=== PATIENT | female | born 1995 | race Caucasian/White ===

== ENCOUNTER 2021-08-26 02:49 | Outpatient (CLI) | payer OTHER, SELFPAY ==
[2021-08-26 15:45] LABS: Kit/Specimen SENT
[2021-08-26 16:03] LABS: Abs Immature Grans 0.05 10^3/uL (0.0-0.06); Absolute Basophil Count 0.07 10^3/uL (0.0-0.2); Absolute Eosinophil Count 0.31 10^3/uL (0.0-0.7); Absolute Lymphocyte Count 2.56 10^3/uL (1.2-3.4); Absolute Monocyte Count 0.75 10^3/uL (0.1-0.8); Basophils % 0.5; Eosinophils % 2.2; HGB 13.8 g/dL (11.2-15.7); Immature Grans % 0.4; Lymphocytes % 18.1; MCH 31.4 pg (27.0-33.0); MCHC 34.5 % (32.0-36.0); MCV 91.1 fL (80-95); MPV 9.7 fL (8.0-11.0); Monocytes % 5.3; Neutrophils % 73.5; Nucleated RBC 0 %; Platelet Count 244 10^3/uL (130-400); RBC 4.39 10^6/uL (3.93-5.22); RDW 12.6 % (11.7-14.6); RDW-SD 41.4 fL; WBC 14.15 10^3/uL (4.4-10.8)
[2021-08-26 17:19] LABS: FREE T4 0.89 ng/dL (0.76-1.46)
[2021-08-28 12:38] LABS: HIV-1/2 Ag & Ab Screen Negative (Negative)
[2021-08-30 08:55] LABS: Hepatitis B Surface Ag Negative (Negative)
[2021-08-30 09:42] LABS: Hepatitis C Ab w Rflx HCV PCR Negative (Negative)
[2021-08-30 10:47] LABS: Rubella IgG Ab (UVM) Positive (See Note); Varicella IgG Antibody Negative (See Note)
[2021-08-31 00:12] LABS: Syphilis IgG w/Reflex Nonreactive (Nonreactive)
== END 2021-08-26 02:50 | disposition home or self-care (01) ==
LOC: LBO 02:49
PROVIDERS: Visit Provider Advanced Practice Midwife
DX: Z34.91 Encounter for supervision of normal pregnancy, unspecified, first trimester
CPT/HCPCS: 36415; 86787; 86803; 86850; 86900; 86901; 87340; 87389; 84439; 84443; 85025; 86762; 86780

== ENCOUNTER 2021-08-26 18:16 | Outpatient (REF) | payer OTHER, SELFPAY ==
[2021-08-26 20:43] LABS: *AMPHETAMINES SCREEN URINE Negative (Negative); *BARBITURATES SCREEN URINE Negative (Negative); *BENZODIAZEPINES SCREEN URINE Negative (Negative); Cannabinoids THC Negative (Negative); Cocaine Screen,Urine Negative (Negative); METHADONE URINE SCREEN Negative (Negative); OPIATES URINE SCREEN Negative (Negative)
[2021-08-26 20:49] LABS: Tricyclic Antidepressants Negative (Negative)
[2021-08-30 14:51] LABS: Chlamydia Result Negative (Negative); GC Result Negative (Negative)
[2021-09-02 11:08] LABS: Buprenorphine Negative ng/mL (Cutoff: 5.0); Norbuprenorphine Negative ng/mL (Cutoff: 2.5)
== END 2021-08-26 18:17 | disposition home or self-care (01) ==
LOC: LBN 18:16
PROVIDERS: Visit Provider Advanced Practice Midwife
DX: Z34.91 Encounter for supervision of normal pregnancy, unspecified, first trimester
CPT/HCPCS: 80307; 87491; 87591; 87086

== ENCOUNTER 2021-09-14 03:23 | Outpatient (CLI) | payer OTHER, SELFPAY ==
[2021-09-14 11:23] LABS: Kit/Specimen SENT
== END 2021-09-14 03:24 | disposition home or self-care (01) ==
LOC: LBO 03:24
PROVIDERS: Visit Provider Advanced Practice Midwife
DX: Z34.02 Encounter for supervision of normal first pregnancy, second trimester (principal)
CPT/HCPCS: 36415

== ENCOUNTER 2021-09-23 02:25 | Outpatient (CLI) | payer OTHER, SELFPAY ==
[2021-09-23 16:34] LABS: TSH (W/Ref FT4) 7.93 uIU/mL (0.36-3.74)
[2021-09-23 17:17] LABS: FREE T4 0.86 ng/dL (0.76-1.46)
== END 2021-09-23 02:26 | disposition home or self-care (01) ==
LOC: LBO 02:25
PROVIDERS: Advanced Practice Midwife; Visit Provider Advanced Practice Midwife
DX: E03.9 Hypothyroidism, unspecified (principal); Z34.91 Encounter for supervision of normal pregnancy, unspecified, first trimester
CPT/HCPCS: 36415; 84439; 84443

== ENCOUNTER 2021-10-22 02:29 | Outpatient (CLI) | payer OTHER, SELFPAY ==
[2021-10-22 15:57] LABS: FREE T4 0.98 ng/dL (0.76-1.46)
== END 2021-10-22 02:30 | disposition home or self-care (01) ==
LOC: LBO 02:29
PROVIDERS: Visit Provider Advanced Practice Midwife
DX: E03.9 Hypothyroidism, unspecified (principal)
CPT/HCPCS: 36415; 84439; 84443

== ENCOUNTER 2021-11-26 18:51 | Outpatient (CLI) | payer OTHER, SELFPAY ==
[2021-11-26 14:41] LABS: CREATININE 0.6 mg/dL (0.55-1.02)
== END 2021-11-26 18:52 | disposition home or self-care (01) ==
LOC: LBO 18:52
PROVIDERS: Visit Provider Advanced Practice Midwife
DX: O98.512 Other viral diseases complicating pregnancy, second trimester (principal); U07.1 COVID-19; Z3A.23 23 weeks gestation of pregnancy
CPT/HCPCS: 36415; 82565

== ENCOUNTER 2021-12-17 01:43 | Outpatient (CLI) | payer OTHER, SELFPAY ==
[2021-12-17 09:44] LABS: HCT 35.4 % (36.0-46.0); HGB 12.2 g/dL (11.2-15.7); MCH 32.4 pg (27.0-33.0); MCHC 34.5 % (32.0-36.0); MCV 94 fL (80-95); MPV 9.5 fL (8.0-11.0); Platelet Count 204 10^3/uL (130-400); RBC 3.77 10^6/uL (3.93-5.22); RDW 12.3 % (11.7-14.6); RDW-SD 42.4 fL; WBC 14.81 10^3/uL (4.4-10.8)
[2021-12-17 09:52] LABS: Glucose,1 Hr (Glucola) 132 mg/dL (80-140)
== END 2021-12-17 01:44 | disposition home or self-care (01) ==
LOC: LBO 01:43
PROVIDERS: Visit Provider Advanced Practice Midwife
DX: Z34.92 Encounter for supervision of normal pregnancy, unspecified, second trimester (principal); Z3A.26 26 weeks gestation of pregnancy
CPT/HCPCS: 36415; 82950; 85027

== ENCOUNTER 2021-12-28 08:06 | Outpatient (CLI) | payer OTHER, SELFPAY | END 2021-12-28 08:07 | disposition home or self-care (01) | LOC: LBO 08:09 | PROVIDERS: Visit Provider Advanced Practice Midwife ==

== ENCOUNTER 2022-01-26 02:38 | Outpatient (CLI) | payer OTHER, SELFPAY ==
[2022-01-26 08:43] LABS: FREE T4 1.07 ng/dL (0.76-1.46); TSH 8.34 uIU/mL (0.36-3.74)
== END 2022-01-26 02:39 | disposition home or self-care (01) ==
LOC: LBO 02:38
PROVIDERS: Visit Provider Advanced Practice Midwife
DX: E03.9 Hypothyroidism, unspecified (principal)
CPT/HCPCS: 36415; 84439; 84443

== ENCOUNTER → 2022-02-02 00:12 | Outpatient (CLI) | payer OTHER, SELFPAY ==
--- NOTE | 2022-02-02 08:15 | DI.US_ITS ---
Exam(s) US OB SINDY WEIGHT EXAM: US OB SINDY WEIGHT CLINICAL HISTORY: check placental position, growth,o44.41,F/UPLACENTA. TECHNIQUE: Transabdominal obstetrical ultrasound was performed. COMPARISON: US US OB F/U FACIAL/LVOT/RVOT from 12/21/2021 FINDINGS: There is a single viable intrauterine gestation with cardiac activity identified-140 bpm The fetus is presently in cephalic position . Amniotic fluid: There is a normal amount of amniotic fluid with an SINDY of 15.0cm. Placental location: The placenta is posterior grade 2,with a distance of only 2.6 cm from the tip of the placenta to the internal cervical os. Dating parameters place this at approximately 33 weeks and 1 day gestational age, implying ELISHA of March 22, 2022. BPD measures 32 weeks and 3 days HC measures 34 weeks and 3 days AC measures 31 weeks and 6 days FL measures 33 weeks and 5 days Estimated weight is 2037 gm-4 pounds, 8 ounces. Fetus is at the 17th percentile on the Hadlock scale. IMPRESSION:: Viable 3rd trimester gestation, as described above. There is a distance of 2.6 cm between the distal tip of the posterior placenta and the internal cervi gabrielel os, as verified on trans vaginal study. DATA REPOSITORY:
== END ==
PROVIDERS: Visit Provider Advanced Practice Midwife
DX: O44.43 Low lying placenta NOS or without hemorrhage, third trimester (principal); O98.513 Other viral diseases complicating pregnancy, third trimester; U07.1 COVID-19; Z3A.33 33 weeks gestation of pregnancy
CPT/HCPCS: 76816

== ENCOUNTER 2022-02-14 03:49 | Outpatient (CLI) | payer OTHER, SELFPAY ==
[2022-02-14 10:22] LABS: TSH (W/Ref FT4) 0.99 uIU/mL (0.36-3.74)
== END 2022-02-14 03:50 | disposition home or self-care (01) ==
LOC: LBO 03:49
PROVIDERS: Visit Provider Advanced Practice Midwife
DX: O99.283 Endocrine, nutritional and metabolic diseases complicating pregnancy, third trimester (principal); E03.9 Hypothyroidism, unspecified; Z3A.35 35 weeks gestation of pregnancy
CPT/HCPCS: 36415; 84443

== ENCOUNTER 2022-02-23 20:14 | Outpatient (REF) | payer OTHER, SELFPAY ==
[2022-02-23 13:54] LABS: *AMPHETAMINES SCREEN URINE Negative (Negative); *BARBITURATES SCREEN URINE Negative (Negative); *BENZODIAZEPINES SCREEN URINE Negative (Negative); Cannabinoids THC Negative (Negative); Cocaine Screen,Urine Negative (Negative); METHADONE URINE SCREEN Negative (Negative); OPIATES URINE SCREEN Negative (Negative)
[2022-02-23 13:55] LABS: Tricyclic Antidepressants Negative (Negative)
[2022-03-03 15:34] LABS: Buprenorphine Negative ng/mL (Cutoff: 5.0); Norbuprenorphine Negative ng/mL (Cutoff: 2.5)
== END 2022-02-23 20:15 | disposition home or self-care (01) ==
LOC: LBN 20:14
PROVIDERS: Visit Provider Advanced Practice Midwife
DX: Z34.93 Encounter for supervision of normal pregnancy, unspecified, third trimester (principal); Z36.85 Encounter for antenatal screening for Streptococcus B; Z3A.36 36 weeks gestation of pregnancy
CPT/HCPCS: 80307; 87081

== ENCOUNTER 2022-03-02 16:54 | Outpatient (REF) | payer OTHER, SELFPAY ==
[2022-03-11 11:42] LABS: Buprenorphine Negative ng/mL (Cutoff: 5.0)
== END 2022-03-02 16:55 | disposition home or self-care (01) ==
LOC: LBN 16:54
PROVIDERS: Advanced Practice Midwife; Visit Provider Advanced Practice Midwife
DX: O26.893 Other specified pregnancy related conditions, third trimester (principal); R39.89 Other symptoms and signs involving the genitourinary system; Z3A.39 39 weeks gestation of pregnancy
CPT/HCPCS: 80307; 87086

== ENCOUNTER 2022-03-21 00:21 | Inpatient (IN) | payer OTHER, SELFPAY ==
[2022-03-21] VITALS (19 sets, daily range): BP systolic 108–136; BP diastolic 64–90; PULSE 69–108; RESP 12–18; TEMP 36.5–37.1; O2SAT 98–100
--- NOTE | 2022-03-21 00:27 | HPE_ITS ---
Date of service: 03/21/22 Time of Service: 00:27 Assessment and Plan Assessment and plan (1) Normal labor: Status: Acute Assessment and plan: 1. Will admit, obtain COVID test, CBC, CMP, TSH with reflex and Type and screen 2. IV access for GBS prophylaxis 3. Will support labor, use of tub for water therapy and frequent position changes 4. Expect NVD. KH (2) Hypothyroid: Status: Chronic Assessment and plan: 1. TSH with reflex ordered. 2. Continue Levothyroxine 200 mcg as ordered daily. KH (3) Maternal varicella, non-immune: Status: Acute Assessment and plan: 1. Patient is aware and we will offer VZV vaccine prior to discharge. KH (4) Rh negative status during : Status: Acute Assessment and plan: 1. FOB provided evidence of also being Rh negative and patient has declined Rhogam, will likely also decline PP. KH (5) Genital herpes: Status: Acute Assessment and plan: 1. No lesions noted on exam. 2. Has been taking prophylaxis but admits last dose was 2 days ago. 3. No outbreaks during reported. KH (6) Group B Streptococcus carrier, +RV culture, currently : Status: Acute Assessment and plan: 1. IV access for PCN prophylaxis as ordered. KH OB-HPI Labor/Delivery History of Present Illness Reason for Visit: labor at term, GBS postivie Chief Complaint: Uterine Contractions. ELISHA Calculator Estimated Delivery Date Method Current WG Current Estimate 03/19/22 LMP (Certain) 40w 2d Other Estimates 03/19/22 Ultrasound #1 40w 2d History of Present Expected Delivery Route/Plan - CNM Goes by Sanjeev LOPEZ/jaydon Fam (his first child) BG Varicella Non-Immune, offer vaccine GBS positive - prophylaxis in labor Specific Issues/Plan 1. Depression, stopped sertraline with , will consider restarting after 36 wks or . 2. Hypothyroidism since age 18-.on levothyroxine 112 mcg daily 2a. TSH 22.9, T4 0.89, per Dr. Rodriguez: increase Rx to 150 mcg, recheck TSH 09/23/21 2b. TSH 09/23 7.93 T4 0.86, per Dr. Mora continue present Levo dose and repeat 4 weeks 2c. TSH October- 6.70, T4 - 0.98 2d TSH 01/26- 8.34 patient reports not taking daily, will try to take daily and repeat in 3 wks, if remains elevated will increase to 225mcg per Dr. Mora consult. 2e. On 02/14 TSH=0.99 3. History of genital HSV - prophylaxis at 36 weeks 4. Alesia and her partner are unvaccinated for covid 5. Rh neg; will ask partner to check his blood type. -Partner is Rh neg confirmed by [place]. 6. Desires cfDNA screen, declines CF/SMA and AFP screen 6a. 1st sample yielded no results, redrawn on 09/14 6b. results show atypical results, to [facility] on 10/27 & telegenetics on 10/11 6c. Patient declined amnio after consult, will have target US on 10/21 and reassess 7. Level II targeted US: complete previa, numerous placenta lakes small and large, episodes of brief bradycardia noted on US: consult with Dr. Gimenez, no follow up required for placental lakes, repeat US for previa at 28 wks: Placenta 1.9cm from tip at 27w3d repeat 33 wks (see below) 7a. echo scheduled at [facility], done 11/19/21, nml findings 7b. placenta is 2.6 cms from cervical os at 33 wks, EFW in 17th percentile, SINDY 15 7. Varicella non immune, pt counseled, offer vaccine 8. COVID + 11/26 at 23w6d, Paxlovid Rx'ed. F/up 33 wk scan on 02/02: EFW 2037 gms in 17th percentile, SINDY=15 9. Dx of Vitiligo while in high school, never used meds, Seen on vulva, hands, face, lower abd low back, feet. Assessment: History Reviewed & Current Narrative: Alesia presented 03/20/22 at approximately 2202 for NST due to regular contractions with increasing intensity and frequency at 8 pm. Denies ROM as had increased mucous with bloody discharge. Baby has been active. NST was reactive. VE was 2/80/-2 but after ambulation VE changed to 4/90/-1 and decision to admit was made due to cervical change and GBS positive status. Informed Consent Informed Consent: Risk,Benefits,Alternatives Discussed and Other (IV access and GBS prophylaxis) Review of Systems All systems reviewed & are unremarkable except as noted in HPI and below PFSH All Active Problems (Updated 03/21/22 @ 00:34 by Bre Roland CNM) Group B Streptococcus carrier, +RV culture, currently (Acute) Normal labor (Acute) Vitiligo (Acute) chromosome abnormality, antepartum (Acute) Rh negative status during (Acute) Maternal varicella, non-immune (Acute) Hypothyroid (Chronic) Depression (Chronic) zoloft in the past Genital herpes (Acute) (Acute) Medical History (Updated 03/21/22 @ 00:34 by Bre Roland CNM) Amenorrhea Complete placenta previa nos or without hemorrhage, second trimester COVID-19 affecting in second trimester + 11/26/21 Low lying placenta nos or without hemorrhage, third trimester Low-lying placenta in second trimester Placental abnormality in second trimester numerous placental lakes small and large on Level II US 10/21/21 ( episodes of bradycardia at that US as well.) Family History (Updated 08/26/21 @ 14:36 by Bre Catherine CNM) Mother Hypertension Hyperlipidemia Diabetes Gestational diabetes Maternal Grandmother Hyperlipidemia Paternal Grandmother Diabetes Other Heart disease Social History Smoking/Tobacco Use Status: Never Smoking risk assessment performed?: Yes Alcohol Intake: former Year quit: 2020 Details: Stop with positive test Substance use type: marijuana Details: Stop with positive test Household members: significant other and other Details: Quentin. Matt?. Met in college in [place]. Moved to [place] 08/18 fiance grew up here Housing: house Number of Children: 0 Education Level: college Details: Bachelors management/marketing current occupation: Marketing for [employer] Sexually active: Yes Additional Social history: Fianc? Masters in public policy [employer] History History 1 Para 0 Hx # Term Pregnancies 0 Multiple births 0 Hx # Pregnancies 0 Ectopic pregnancies 0 AB induced 0 Hx Number of Living Children 0 AB spontaneous 0 Meds Allergies and Home Medications Allergies Allergy/AdvReac Type Severity Reaction Status Date / Time bacitracin [From Polysporin] Allergy Verified 03/21/22 00:34 neomycin Allergy Verified 03/21/22 00:34 [From Neosporin ([id number])] polymyxin B [From Polysporin] Allergy Verified 03/21/22 00:34 ferrous sulfate AdvReac Intermediate Dizziness/L Verified 03/21/22 00:34 ighthead Home Medications Medication Instructions Recorded Confirmed Type PNV 153-FA 400 mcg-om3 35 mg-dha 2 tab PO DAILY 10/22/21 03/21/22 History 25 mg-epa 5 mg-fish oil chew tablet ( Gummies) levothyroxine 200 mcg tablet 200 mcg PO DAILY #60 tabs 10/26/21 03/21/22 Rx valacyclovir 500 mg tablet 500 mg PO BID HSV prophyaxis #60 02/23/22 03/21/22 Rx tabs Exam Physical Exam Vital signs: 131/87 Pulse 86 Vital Signs Reviewed: Yes Constitutional Constitutional: mild distress (working well with uterine contractions) Detailed Labor and Delivery Exam Dilation: 4 Effacement (%): 90 station: -1 Position: ROBBIE Cervix position: posterior Consistency: soft Burger Score: Cervical Points Exam 0 1 2 3 Dilation Closed 1-2cm 3-4 cm 5-6cm Effacement 0-30% 40-50% 60-70% 80% Consistency Firm Medium Soft Station -3 -2 -1,0 +1,+2 Position Posterior Mid Anterior BURGER Score(Cervical Ripeness Score): 9 Amniotic Membrane Status: Intact Monitor Mode: External Contraction Frequency(min): 2-3 Contraction Duration(sec): 60 Contraction Intensity: Moderate Fetus A Heart Rate Baseline: 135 Monitor Accelerations: 15 X 15 Monitor Decelerations: None Variability: Moderate (6-25 BPM) Categories: Category I Est. Weight: 7 lb HEENT Exam HEENT Exam: Normal Neck Exam Neck Exam: Normal Chest/Brest/Axilla Exam Chest Exam: Normal Breast Exam Breast Exam: Not Done Respiratory Exam Respiratory Exam: Normal Cardiovascular Exam Cardiovascular Exam: Normal Abdominal Exam Abdominal Exam: Normal Rectal Exam Rectal Exam: Not Done Exam Exam: Normal Extremities Exam Extremities Exam: Normal Back/Spine/Pelvis Exam Back Exam: Normal Pelvis Adequate: Yes Skin Exam Skin Exam: Normal Neurological Exam Neurological Exam: Normal Psychiatric Exam Psychiatric Exam: Normal Results Results Group Beta Strep: Positive Blood Type: O- Rubella Status: Immune Varicella Immunity: Nonimmune Lab Results: Panorama testing for CfDNA was inconclusive and patient was seen at [facility] for further evaluation, Atypical finding on repeat testing, echo done and no cardiac abnormality on echo or Level II US decreased risk of trisomy 13 per genetics. 1 hour 132 Risk Assessment Risk for Shoulder Dystocia Historical/Initial OB: NEGATIVE FOR: Pelvic Abnormality, Pre- BMI>30, Previous Shoulder Dystocia or Previous Macrosomia 40 Weeks: NEGATIVE FOR: EFW> 4500 gms, Maternal Weight Gain >40lb or Post Dates Delivery Plan @ 40 wks: MIKE SAEED Risk for Pre-Eclampsia Date Initiated/Initials: not indicated Yes, if one or more: NEGATIVE FOR: Hx Pre-E/Gest HTN, Chronic HTN, Multiple Gestation, Pre-gestational DM, Renal Disease, Systemic Lupus or APA Syndrome Yes, if 2 or more: POSITIVE FOR: Nulliparity; NEGATIVE FOR: Age>= 35 yrs, >10yr btwn pregnancies, BMI>30, ethinicty, Mother/Sister w/ Pre-E or Previous IUGR Risk for Post- Hemorrhage Initial: NEGATIVE FOR: Multiple Gestation, Previous PPH, Known Clotting Deficiency, Grand Multiparity or Anticoagulation At Risk?: No Counseled re: Active Management: Yes Date/Initials: 03/21/22 DARLIN Risks Reviewed Risks Reviewed Upon Admission: Yes (LR X 3)
[2022-03-21 00:41] LABS: HCT 37.9 % (36.0-46.0); HGB 13.2 g/dL (11.2-15.7); MCHC 34.8 % (32.0-36.0); MCV 89 fL (80-95); MPV 10.6 fL (8.0-11.0); Platelet Count 195 10^3/uL (130-400); RBC 4.26 10^6/uL (3.93-5.22)
[2022-03-21 00:54] LABS: Source Nasal/Nares
[2022-03-21 01:03] LABS: ALT 17 U/L (14-59); AST 20 U/L (15-37); Alkaline Phosphatase 227 U/L (46-116); Anion Gap 9.6 mmol/L (3-11); BUN 8 mg/dL (7-18); Bilirubin, Total 0.4 mg/dL (0.2-1.0); CO2 22.4 mmol/L (21.0-32.0); CREATININE 0.8 mg/dL (0.55-1.02); Calcium 8.4 mg/dL (8.5-10.1); Chloride 103 mmol/L (98-107); Estimated GFR 104.15 (mL/min/1.73m2); Glucose 101 mg/dL (74-106); Potassium 3.8 mmol/L (3.5-5.1); Sodium 135 mmol/L (136-145); TSH (W/Ref FT4) 10.13 uIU/mL (0.36-3.74); Total Protein 7.2 g/dL (6.4-8.2)
[2022-03-21 01:09] LABS: COVID-19 PCR Negative (Negative)
[2022-03-21] MEDS: Penicillin G POT. 5,000,000 UNITS in Normal Saline 100 ML 200 UNITS IVPB (01:20)
[2022-03-21] MEDS: Normal Saline Flush 10 ML SYR IVP ×2 (01:20→05:30)
[2022-03-21 01:21] LABS: FREE T4 1.03 ng/dL (0.76-1.46)
[2022-03-21] MEDS: Penicillin G POT. 3,000,000 UNITS in Normal Saline 50 ML 100 UNITS IVPB (05:00)
--- NOTE | 2022-03-21 06:22 | PLAC_PTH ---
PATIENT: Alesia Fam LOC: OBS U#:[id number] AGE/SX: 26/F ROOM: OBS.300 RE03/21/[address]: Bre Roland CNM : 1995 BED: A DIS: 03/22/2022 SPEC #: [id number] RECD: 03/22/22 12:26 STATUS: ALESIA REQ #: [id number] HAYLIE: 03/21/22 06:[address]: Bre Roland DEPT: Surgical Specimen RECD BY: Kerry Hargrove ENTERED: 03/22/22 12:26 SP TYPE: PLAC OTHR DR: Unknown,Unknown Tissues: 1 - PLACENTA (3RD TRIMESTER) Procedures: GROSS AND MICRO LEVEL 5 Comments: [id number]
[2022-03-21] MEDS: Lidocaine 1% Multi-Dose 20 ML VIAL IJ (06:30)
--- NOTE | 2022-03-21 06:55 | W.OBDELIVERY ---
Date of service: 03/21/22 Time of Service: 06:55 OB Labor/ Delivery Information Baby A Delivery Delivery Method: Spontaneaous Presentation: Cephalic Cephalic Position: Vertex Vertex Position: Right Occipital Anterior Cord Description-Baby A: 3 Vessels, Clamped/Cut and Other (1 minute of delayed cord clamping) Amniotic Fluid: Clear Estimated Blood Loss: 200 Delivery Outcome: Liveborn Complications: none Infant Transferred: Remains with Mother Note: Alesia presented in early labor in the evening of 03/20/22 at 2cm. She experienced normal labor progression to 4cm in less than 2 hours and was admitted for IV PCN prophylaxis due to GBS + status. CAT I tracing and normal FHR by doppler throughout labor. She had SROM at 0438 on 03/21/22 and shortly after felt pressure to push. VE at 0443 10cm +1. Patient used breathing down method of pushing and progressed normally. Second stage huddle was held X 2 each hour. Vaginal delivery over 2nd degree perineal laceration at 0616 of live female. Baby was brought up to Mother's abdomen by Alesia reaching down for her baby. Positive family bonding noted. After 1 minute cord stopped pulsing and cord was double clamped and cut by JOHN Saavedra. 3 vessel cord noted. Baby girl Sia had scores of 9 and 9. Placenta delivered with maternal pushing effort at 0622, appears intact. I reviewed with family that we will send placenta to pathology for evaluation due to findings of Panorama cfDNA X 2 and placental lakes on US. Fundus is firm < U, EBL 200cc. Perineum was infiltrated with 1% lidocaine and laceration was repaired in usual fashion. Mother baby and Father are in satisfactory condition. Expect normal PP course. Baby's weight 6lb5.2oz. The couple plan condoms for contraception. Providers Nurse Automatic Buffing Wheel Former: Bre Roland Nurse: Valarie López Nurse: Vicki Matt Labor/Delivery Information Number of Babies in Womb: 1 Steroids Given: None Reason Steroids Not Administered: N/A Group Beta Strep: Positive Antibiotics Administered: Yes Number of Doses of Antibiotics: 2 Rubella Status: Immune Blood Type: O- Varicella Immunity: Nonimmune Medication in Delivery: lidocaine to perineum Maternal Complications: None Shoulder Dystocia: No Stages of Labor Onset of Labor Date: 03/20/22 Onset of Labor Time: 16:00 Complete Dilatation Date: 03/21/22 Complete Dilatation Time: 04:43 Labor - Stage 1 Duration: 24 hours and 0 minutes ROM Baby A: 03/21/22 ROM Baby A: 04:38 ROM Total Time- Baby A: [id number] Infant Delivery Date-Baby A: 03/21/22 Delivery Time-Baby A: 06:16 Labor Stage 2 Duration: 1 hours and 33 minutes Placenta Delivery Date-Baby A: 03/21/22 Placenta Delivery Time-Baby A: 06:22 Labor-Stage 3 Duration: 6 minutes Total Length of Labor-Baby A: 14 hours and 16 minutes Placenta Cultured: No Placenta Status: Delivered Baby A Gender: Female Gestational Status: Term (39-41.6 wks) Gestational Age in Weeks/Days: 40 Weeks and 2 Days Score-1 Minute Interval(Baby A) Heart Rate-1 minute: 100 BPM or Greater Respiratory Effort- 1 minute: Spontaneous/Strong Cry Muscle Tone-1 minute: Active Movement Reflex Response-1 minute: Prompt Response Color-1 minute: Bluish Hands or Feet Total Score-1 minute: 9 Score-5 Minute Interval(Baby A) Heart Rate- 5 minute: 100 BPM or Greater Respiratory Effort-5 minute: Spontaneous/Strong Cry Muscle Tone-5 minute: Active Movement Reflex Response-5 minute: Prompt Response Color-5 minute: Bluish Hands or Feet Total Score- 5 minute: 9
[2022-03-21] MEDS: Oxytocin 10 UNITS/ML VIAL IM (07:22)
[2022-03-21] MEDS: Levothyroxine 200 MCG TAB PO (08:01)
--- NOTE | 2022-03-21 20:47 | OBPPV_ITS ---
Date of service: 03/21/22 Time of Service: 20:47 Assessment and Plan Assessment and plan (1) care following vaginal delivery: Status: Acute Assessment and plan: 1. Will get CBC and reassess 2. Reviewed possibility of blood transfusion if needed for low hgb/hct due to symptomatic when out of bed. 3. Encouraged patient to put slurry control operator helper mckee when she desires to get out of bed 4. Encouraged sleep and hydration. Subjective Subjective Interval history: Nursing reports that patient has had near syncopal episodes while out of bed to but denies large amounts of bleeding. Patient did have very full bladder earlier with slightly heavier bleeding but then no bleeding until out of bed ne xt time. Denies dizziness when out of bed. Patient has not slept since baby's and is thinking that is why she feels light headed. Alesia also reports that she is allergic to iron due to dizziness and lightheadedness after taking supplement in past. I reviewed that if she remains symptomatic or there has been enough change in her hgb and hct to warrant we would only be able to offer her b lood transfusion for recovery. Verbalizes understanding and agrees to blood draw. Patient's Mood: stable, fatigued baby status: Doing well, Nursing well and Strong Bonding Observed feeding status: Exclusively breast feeding Exam Physical Exam Vital signs: Temp Pulse Resp BP Pulse Ox 98.1 F 85 18 115/72 98 03/21/22 19:15 03/21/22 19:15 03/21/22 19:15 03/21/22 19:15 03/21/22 17:02 Vital Signs Reviewed: Yes Constitutional Constitutional: no acute distress, average body habitus and cooperative HEENT Exam HEENT Exam: Normal Neck Exam Neck Exam: Normal (normal visual inspection) Breast Exam Bilateral: Breast Exam: Normal Nipple Exam: Normal Respiratory Exam Respiratory Exam: Normal Cardiovascular Exam Cardiovascular Exam: Normal Abdominal Exam Abdomen: Other (normal exam) Fundal Exam Fundus: Below Umbilicus and Firm Comment: small lochia noted. Rectal Exam Rectal Exam: Not Done Exam Perineum: Normal and Repair Intact Extremities Exam Extremity Exam: Normal (denies calf tenderness) and Full ROM Back/Spine/Pelvis Exam Back Exam: Normal Skin Exam Skin Exam: Normal Neurological Exam Neurological Exam: Normal Psychiatric Exam Psychiatric Exam: Normal Results Hemoglobin/Hematocrit: Hgb 13.2 g/dL (11.2-15.7) 03/21/22 00:21 Hct 37.9 % (36.0-46.0) 03/21/22 00:21 Abnormal Lab Findings: Abnormal Labs 03/21/22 03/21/22 00:15 00:21 WBC 16.40 H Sodium 135 L Calcium 8.4 L Alkaline Phosphatase 227 H Albumin 3.0 L TSH 10.13 H
[2022-03-21 21:01] LABS: HCT 32.2 % (36.0-46.0); HGB 11.2 g/dL (11.2-15.7); MCH 31.1 pg (27.0-33.0); MCHC 34.8 % (32.0-36.0); MCV 89 fL (80-95); Platelet Count 228 10^3/uL (130-400); RDW 13.2 % (11.7-14.6); RDW-SD 42.3 fL
[2022-03-22 07:43] VITALS: BP 129/83; PULSE 111; RESP 17
[2022-03-22 08:18] VITALS: PULSE 84; TEMP 36.8
[2022-03-22] MEDS: Hamamelis Leaf/Glycerin 100 EACH BOX PR (08:45)
--- NOTE | 2022-03-22 10:47 | DSE_ITS ---
Date of service: 03/22/22 Time of Service: 10:47 DS: Diagnosis Discharge Diagnosis (1) care following vaginal delivery: Status: Acute Asessment and Plan: Caring for baby independently. Pain is managed well with oral analgesics. Voiding without difficulty. well. A - stable mother and baby , Post day 1, history of depression P - Discharge to home today. Routine post instructions. [facility] (2) Depression: Status: Chronic Asessment and Plan: Signs of post depression reviewed. Discussed starting medication for depression. Alesia would like to resume sertraline use and 50 mg daily was escribed. We discussed increasing the dose in 2 weeks if indicated. Discharge Plan Disposition Patient Disposition: HOME Condition: Good Discharge Details Reason For Visit: labor at term, GBS postivie Admit Date/Time: 03/21/22 00:21 Admit Provider: Bre Roland Attending Provider: Bre Roland Primary Care Provider: Unknown,Unknown Home Meds and New Rx's Prescriptions: New sertraline 50 mg tablet 50 mg PO DAILY Qty: 30 6RF Continued Gummies 400 mcg-35 mg- 25 mg-5 mg tablet,chewable 2 tab PO DAILY levothyroxine 200 mcg tablet 200 mcg PO DAILY Qty: 60 0RF valacyclovir 500 mg tablet 500 mg PO BID Qty: 60 1RF Discharge Instructions Stand Alone Forms: BC Instructions, BC Post Vaginal Deliver Activity:: Activity as Tolerated Equipment/Supplies:: No Equipment Needed Diet:: As Tolerated Discharge Orders Discharge Orders: Discharge Order (Routine); Ordered 03/22/22 Ordered By: Bre Catherine OB:DS Summary Summary Vaginal Delivery Method: Spontaneaous Episiotomy Description: None Laceration Description: Perineal Laceration Extension: Second Degree Contraception Discussed Contraception Discussed: Yes Contraceptive Plan: Foam/Condoms, Gender-Baby A: Female weight: 6 lb 5.236 oz Status at Discharge Functional status at discharge: independent ambulation Overall status at discharge: patient is back to baseline Mental Status: mental status grossly normal Speech and Movement: speech and movement normal Mood: congruent mood Affect: normal affect Exam Physical Exam Vital signs: Temp Pulse Resp BP Pulse Ox 98.2 F 84 17 129/83 98 03/22/22 08:18 03/22/22 08:18 03/22/22 07:43 03/22/22 07:43 03/21/22 17:02 Respiratory Exam Respiratory Exam: Normal Cardiovascular Exam Cardiovascular Exam: Normal Fundal Exam Fundus: Below Umbilicus Extremities Exam Extremity Exam: Normal Skin Exam Skin Exam: Normal Psychiatric Exam Psychiatric Exam: Normal PFSH All Active Problems (Updated 03/21/22 @ 20:52 by Bre Roland CNM) care following vaginal delivery (Acute) Vitiligo (Acute) chromosome abnormality, antepartum (Acute) Rh negative status during (Acute) Maternal varicella, non-immune (Acute) Hypothyroid (Chronic) Depression (Chronic) zoloft in the past Genital herpes (Acute) (Acute) Medical History (Updated 03/21/22 @ 20:52 by Bre Roland CNM) Amenorrhea Complete placenta previa nos or without hemorrhage, second trimester COVID-19 affecting in second trimester + 11/26/21 Group B Streptococcus carrier, +RV culture, currently Low lying placenta nos or without hemorrhage, third trimester Low-lying placenta in second trimester Normal labor Placental abnormality in second trimester numerous placental lakes small and large on Level II US 10/21/21 ( episodes of bradycardia at that US as well.) Family History Mother Hypertension Hyperlipidemia Diabetes Gestational diabetes Maternal Grandmother Hyperlipidemia Paternal Grandmother Diabetes Other Heart disease Social History Smoking/Tobacco Use Status: Never Smoking risk assessment performed?: Yes Alcohol Intake: former Year quit: 2020 Details: Stop with positive test Substance use type: marijuana Details: Stop with positive test Household members: significant other and other Details: Kaegan. Gutierrez?. Met in college in [place]. Moved to [place] 08/18 fiance grew up here Housing: house Number of Children: 0 Education Level: college Details: Bachelors management/marketing current occupation: [employer] Sexually active: Yes Do you feel safe at home: Yes Do you feel safe in your relationship?: Yes Additional Social history: Fianc? Masters in public policy [employer] History History 1 Para 0 Hx # Term Pregnancies 0 Multiple births 0 Hx # Pregnancies 0 Ectopic pregnancies 0 AB induced 0 Hx Number of Living Children 0 AB spontaneous 0 DS: Data Vitals/I&O Vitals and I&O: Vital Signs Temperature 98.2 F 03/22/22 08:18 Pulse 84 03/22/22 08:18 Pulse Rhythm Regular 03/22/22 08:18 Respiratory Rate 17 03/22/22 07:43 Respiratory Depth Normal 03/22/22 08:18 Blood Pressure 129/83 03/22/22 07:43 Blood Pressure Mean 98 03/22/22 07:43 Pulse Oximetry 98 03/21/22 17:02 Oxygen Delivery Method Room Air 03/21/22 01:25 Oxygen Flow Rate 0 03/21/22 01:25 Pain Level 4 03/21/22 19:15 Comment 03/21/22 04:14 Intake & Output 03/21/22 03/21/22 03/22/22 11:59 23:59 11:59 Weight 133 lb Other: Urine Color Pale Pale Straw Straw Data Completed and Pending Labs on day of discharge: Labs from last 24 hours 03/21/22 20:55 WBC 19.40 H RBC 3.60 L Hgb 11.2 D Hct 32.2 L MCV 89 MCH 31.1 MCHC 34.8 RDW 13.2 Plt Count 228 MPV 10.0
== END 2022-03-22 16:54 | disposition home or self-care (01) | DRG 806 ==
PROVIDERS: Admitting Provider Advanced Practice Midwife; Visit Provider Advanced Practice Midwife
DX: O99.284 Endocrine, nutritional and metabolic diseases complicating childbirth (principal); O36.0930 Maternal care for other rhesus isoimmunization, third trimester, not applicable or unspecified; Z37.0 Single live birth; O98.32 Other infections with a predominantly sexual mode of transmission complicating childbirth; O99.824 Streptococcus B carrier state complicating childbirth; E03.9 Hypothyroidism, unspecified; O99.344 Other mental disorders complicating childbirth; F32.A Depression, unspecified; O43.893 Other placental disorders, third trimester; O70.1 Second degree perineal laceration during delivery; Z3A.40 40 weeks gestation of pregnancy; L80 Vitiligo
CPT/HCPCS: 80053; 85027; 86850; 86900; 86901; 87635; 59025; 84439; 84443; 88307; G0378; J2540; J2590

== ENCOUNTER 2022-04-29 02:04 | Outpatient (CLI) | payer OTHER, SELFPAY ==
[2022-04-29 11:59] LABS: FREE T4 1.37 ng/dL (0.76-1.46); TSH 1.01 uIU/mL (0.36-3.74)
[2022-04-29 19:38] LABS: T3,Free 4.5 pg/mL (2.8-5.3)
== END 2022-04-29 02:05 | disposition home or self-care (01) ==
LOC: LBO 02:04
PROVIDERS: Advanced Practice Midwife; Visit Provider Advanced Practice Midwife
DX: E03.9 Hypothyroidism, unspecified (principal)
CPT/HCPCS: 36415; 84439; 84443; 84481

== ENCOUNTER 2023-11-14 05:52 | Outpatient (CLI) | payer OTHER, SELFPAY ==
[2023-11-14 15:19] LABS: Abs Immature Grans 0.07 10^3/uL (0.0-0.06); Absolute Eosinophil Count 0.37 10^3/uL (0.0-0.7); Basophils % 0.5; Eosinophils % 2.9; HCT 39.4 % (36.0-46.0); HGB 13.9 g/dL (11.2-15.7); Immature Grans % 0.5; Lymphocytes % 15.3; MCHC 35.3 % (32.0-36.0); MCV 91 fL (80-95); MPV 9.4 fL (8.0-11.0); Monocytes % 5.5; Neutrophils % 75.3; Platelet Count 236 10^3/uL (130-400); RBC 4.34 10^6/uL (3.93-5.22); RDW 13.1 % (11.7-14.6); RDW-SD 42.5 fL; WBC 12.77 10^3/uL (4.4-10.8)
[2023-11-14 15:20] LABS: Absolute Basophil Count 0.06 10^3/uL (0.0-0.2); Absolute Lymphocyte Count 1.95 10^3/uL (1.2-3.4); Absolute Neutrophil Count 9.62 10^3/uL (1.2-6.7)
[2023-11-14 16:20] LABS: TSH (W/Ref FT4) 13.05 uIU/mL (0.36-3.74)
[2023-11-14 16:38] LABS: FREE T4 0.96 ng/dL (0.76-1.46)
[2023-11-15 08:32] LABS: Hepatitis C Ab w Rflx HCV PCR Negative (Negative)
[2023-11-15 09:32] LABS: HIV-1/2 Ag & Ab Screen Negative (Negative)
[2023-11-15 09:49] LABS: Hepatitis B Surface Ag Negative (Negative)
[2023-11-15 11:02] LABS: Rubella IgG Ab (UVM) Positive (See Note)
[2023-11-15 12:17] LABS: Varicella IgG Antibody Equivocal (See Note)
[2023-11-16 14:56] LABS: Syphilis IgG w/Reflex Nonreactive (Nonreactive)
== END 2023-11-14 05:53 | disposition home or self-care (01) ==
LOC: LBO 05:52
PROVIDERS: Visit Provider Advanced Practice Midwife
DX: Z34.91 Encounter for supervision of normal pregnancy, unspecified, first trimester (principal); Z3A.11 11 weeks gestation of pregnancy
CPT/HCPCS: 36415; 86787; 86803; 86850; 86900; 86901; 87340; 87389; 84439; 84443; 85025; 86762; 86780

== ENCOUNTER 2023-11-14 14:09 | Outpatient (REF) | payer OTHER, SELFPAY ==
--- NOTE | 2023-11-14 14:10 | PAPFT_PTH ---
PATIENT: Alesia Fam LOC: [facility] U#:[id number] AGE/SX: 27/F ROOM: RE11/14/[address]: Bre Roland CNM : 1995 BED: DIS: 11/14/2023 SPEC #: [id number] RECD: 11/14/23 18:12 STATUS: ALESIA REQ #: [id number] HAYLIE: 11/14/23 14:[address]: Bre Roland DEPT: [facility] Cytology RECD BY: Kerry Hargrove ENTERED: 11/14/23 18:12 SP TYPE: PAPFT OTHR DR: Unknown,Unknown Tissues: 1 - CX/ENDOCX FOR PAP SMEARS Procedures: PAP THIN PREP/UVM Screening Comments: [id number] (CHLAMYDIA/GC)
[2023-11-14 19:22] LABS: *AMPHETAMINES SCREEN URINE Negative (Negative); *BARBITURATES SCREEN URINE Negative (Negative); *BENZODIAZEPINES SCREEN URINE Negative (Negative); Cannabinoids THC Negative (Negative); Cocaine Screen,Urine Negative (Negative); METHADONE URINE SCREEN Negative (Negative); OPIATES URINE SCREEN Negative (Negative)
[2023-11-14 19:24] LABS: Tricyclic Antidepressants Negative (Negative)
[2023-11-15 15:53] LABS: Chlamydia Result Negative (Negative); GC Result Negative (Negative)
[2023-11-16 11:52] LABS: Fentanyl Scr w/Rfx Confirm Negative ng/mL (<1)
[2023-11-21 13:00] LABS: Buprenorphine Negative ng/mL (Cutoff: 5.0); Norbuprenorphine Negative ng/mL (Cutoff: 2.5)
== END 2023-11-14 14:10 | disposition home or self-care (01) ==
LOC: LBN 14:09
PROVIDERS: Visit Provider Advanced Practice Midwife
DX: Z34.91 Encounter for supervision of normal pregnancy, unspecified, first trimester (principal); Z3A.11 11 weeks gestation of pregnancy
CPT/HCPCS: 80307; 80348; 87491; 87591; 88142; 87086

== ENCOUNTER 2024-01-03 04:51 | Outpatient (CLI) | payer OTHER, SELFPAY ==
[2024-01-03 15:23] LABS: TSH (W/Ref FT4) 5.32 uIU/mL (0.36-3.74)
[2024-01-03 15:48] LABS: FREE T4 0.93 ng/dL (0.76-1.46)
== END 2024-01-03 04:52 | disposition home or self-care (01) ==
LOC: LBO 04:51
PROVIDERS: Advanced Practice Midwife; Visit Provider Advanced Practice Midwife
DX: E03.9 Hypothyroidism, unspecified (principal)
CPT/HCPCS: 36415; 84439; 84443

== ENCOUNTER 2024-02-28 01:45 | Outpatient (CLI) | payer OTHER, SELFPAY ==
--- NOTE | 2024-02-28 07:30 | DI.US_ITS ---
Exam(s) US OB SINDY WEIGHT EXAM: US OB SINDY WEIGHT CLINICAL HISTORY: SINDY and weight,hypothyroid,e03.9,z34.90. TECHNIQUE: Transabdominal obstetrical ultrasound performed. COMPARISON: US US OB 2-3 TRIMESTER from 01/03/2024 FINDINGS: Number of fetuses: 1 position: VARIED Placental location: There is a grade 2 anterior placenta. No evidence of previa. BIOMETRIC DATA: BPD: 6.97cm, 28weeks HC: 26.03cm, 28weeks 2days AC: 23.89cm, 28weeks 1day FL: 4.91cm, 26weeks 4days EFW: 1,102.21g, 2lb 8.07oz, 80.8% Composite Age: 27weeks 5days ELISHA: 05/24/2024 Heart Rate: 146bpm Amniotic fluid index: 15.02cm. Visually, amount of fluid is within normal limits. IMPRESSION: 1. Single live intrauterine gestation as above. 2. Estimated weight is 1102gms. This is the 81st percentile. 3. Amniotic fluid index is 15.0 cm. Visually within normal limits. DATA REPOSITORY:
== END 2024-02-28 02:05 ==
LOC: DI 01:45
PROVIDERS: Visit Provider Advanced Practice Midwife
DX: E03.9 Hypothyroidism, unspecified (principal); Z34.93 Encounter for supervision of normal pregnancy, unspecified, third trimester; Z3A.28 28 weeks gestation of pregnancy
CPT/HCPCS: 76816

== ENCOUNTER 2024-02-28 03:17 | Outpatient (CLI) | payer OTHER, SELFPAY ==
[2024-02-28 14:37] LABS: HGB 11.8 g/dL (11.2-15.7); MCH 31.9 pg (27.0-33.0); MCHC 33.7 % (32.0-36.0); MCV 95 fL (80-95); MPV 9.5 fL (8.0-11.0); Platelet Count 203 10^3/uL (130-400); RDW 12.9 % (11.7-14.6); RDW-SD 43.8 fL; WBC 10.96 10^3/uL (4.4-10.8)
[2024-02-28 15:17] LABS: Glucose,1 Hr (Glucola) 147 mg/dL (80-140)
[2024-02-28 16:06] LABS: TSH (W/Ref FT4) 4.28 uIU/mL (0.36-3.74)
[2024-02-28 16:43] LABS: FREE T4 1.23 ng/dL (0.76-1.46)
== END 2024-02-28 03:18 | disposition home or self-care (01) ==
LOC: LBO 03:17
PROVIDERS: Advanced Practice Midwife; Visit Provider Advanced Practice Midwife
DX: Z34.92 Encounter for supervision of normal pregnancy, unspecified, second trimester (principal); E03.9 Hypothyroidism, unspecified
CPT/HCPCS: 36415; 82950; 85027; 84439; 84443

== ENCOUNTER 2024-02-28 13:59 | Outpatient (REF) | payer OTHER, SELFPAY ==
[2024-02-28 15:18] LABS: *AMPHETAMINES SCREEN URINE Negative (Negative); *BARBITURATES SCREEN URINE Negative (Negative); *BENZODIAZEPINES SCREEN URINE Negative (Negative); Cannabinoids THC Negative (Negative); Cocaine Screen,Urine Negative (Negative); METHADONE URINE SCREEN Negative (Negative); OPIATES URINE SCREEN Negative (Negative)
[2024-02-28 15:19] LABS: Tricyclic Antidepressants Negative (Negative)
[2024-02-29 11:36] LABS: Fentanyl Scr w/Rfx Confirm Negative ng/mL (<1)
[2024-03-05 09:13] LABS: Buprenorphine Negative ng/mL (Cutoff: 5.0); Norbuprenorphine Negative ng/mL (Cutoff: 2.5)
== END 2024-02-28 14:00 | disposition home or self-care (01) ==
LOC: LBN 13:59
PROVIDERS: Visit Provider Advanced Practice Midwife
DX: Z34.92 Encounter for supervision of normal pregnancy, unspecified, second trimester (principal); Z3A.26 26 weeks gestation of pregnancy
CPT/HCPCS: 80307; 80348

== ENCOUNTER 2024-03-07 03:56 | Outpatient (CLI) | payer OTHER, SELFPAY | END 2024-03-07 03:57 | disposition home or self-care (01) | LOC: LBO 03:56 | PROVIDERS: Advanced Practice Midwife; Visit Provider Advanced Practice Midwife | DX: R73.09 Other abnormal glucose (principal) | CPT/HCPCS: 36415; 82951 ==

== ENCOUNTER 2024-03-27 02:14 | Outpatient (CLI) | payer OTHER, SELFPAY ==
--- NOTE | 2024-03-27 07:30 | DI.US_ITS ---
Exam(s) US OB SINDY WEIGHT EXAM: US OB SINDY WEIGHT CLINICAL HISTORY: SINDY and weight,HYPOTHYROID,E03.9,Z34.90. TECHNIQUE: Transabdominal obstetrical ultrasound performed. COMPARISON: US US OB SINDY WEIGHT from 02/28/2024 FINDINGS: Number of fetuses: 1 position: CEPHALIC heart rate: 140bpm Placental location: ANTERIOR No evidence of previa. BIOMETRIC DATA: BPD: 7.92cm, 31weeks 6days HC: 29.29cm, 32weeks 2days AC: 27.12cm, 31weeks 1day FL: 5.78cm, 30weeks 2days EFW: 1,692.85g, 3lb 12.85oz, 54.7% Composite Age: 31weeks 3days ELISHA: 05/26/2024 Heart Rate: 140bpm Amniotic fluid index: 16.13cm Amount of fluid is within normal limits. anatomy visualized: Left-sided stomach: Unremarkable. Three-vessel cord: Unremarkable. nose: Unremarkable. lips: Unremarkable. IMPRESSION: size and weight are within the expected range. Normal SINDY. DATA REPOSITORY:
== END 2024-03-27 02:34 ==
LOC: DI 02:14
PROVIDERS: Visit Provider Advanced Practice Midwife
DX: Z34.93 Encounter for supervision of normal pregnancy, unspecified, third trimester (principal); Z3A.32 32 weeks gestation of pregnancy
CPT/HCPCS: 76816

== ENCOUNTER 2024-03-27 03:30 | Outpatient (CLI) | payer OTHER, SELFPAY | END 2024-03-27 03:31 | disposition home or self-care (01) | LOC: LBO 03:30 | PROVIDERS: Visit Provider Advanced Practice Midwife | DX: E03.9 Hypothyroidism, unspecified (principal); Z34.93 Encounter for supervision of normal pregnancy, unspecified, third trimester | CPT/HCPCS: 36415; 84443 ==

== ENCOUNTER 2024-04-24 00:53 | Outpatient (CLI) | payer OTHER, SELFPAY ==
--- NOTE | 2024-04-24 07:00 | DI.US_ITS ---
Exam(s) US OB SINDY WEIGHT EXAM: US OB SINDY WEIGHT CLINICAL HISTORY: interval growth,elevated glucose level,hypothyroid,e03.9,r73.09. TECHNIQUE: Transabdominal obstetrical ultrasound performed. COMPARISON: US US OB 2-3 TRIMESTER from 01/03/2024 US US OB SINDY WEIGHT from 02/28/2024 US US OB SINDY WEIGHT from 03/27/2024 FINDINGS:: Number of fetuses: 1 position: Cephalic Placental location: Anterior. No evidence of previa. BIOMETRIC DATA: BPD: 89, 35+ 6 HC: 320, 36+ 0 AC: 312, 35+1 FL: 67, 34+5 EFW: 2610, 63 percentile, Composite Age: 35+3 weeks ELISHA: 26 May 2024 Heart Rate: 162 Amniotic fluid index: 17.8. Visually, amount of fluid is within normal limits. IMPRESSION: size and weight are within the expected range. DATA REPOSITORY:
== END 2024-04-24 01:13 ==
LOC: DI 00:54
PROVIDERS: Visit Provider Advanced Practice Midwife
DX: E03.9 Hypothyroidism, unspecified (principal); Z34.93 Encounter for supervision of normal pregnancy, unspecified, third trimester; R73.09 Other abnormal glucose; Z3A.36 36 weeks gestation of pregnancy
CPT/HCPCS: 76816

== ENCOUNTER 2024-05-03 02:04 | Outpatient (CLI) | payer OTHER, SELFPAY ==
[2024-05-03 14:21] LABS: HCT 35.1 % (36.0-46.0); HGB 11.4 g/dL (11.2-15.7); MCH 29.9 pg (27.0-33.0); MCHC 32.5 % (32.0-36.0); MCV 92 fL (80-95); MPV 8.9 fL (8.0-11.0); Platelet Count 143 10^3/uL (130-400); RBC 3.81 10^6/uL (3.93-5.22); RDW 13.4 % (11.7-14.6); RDW-SD 44.5 fL; WBC 9.88 10^3/uL (4.4-10.8)
[2024-05-03 15:30] LABS: TSH (W/Ref FT4) 8.76 uIU/mL (0.36-3.74)
[2024-05-03 15:51] LABS: FREE T4 1.07 ng/dL (0.76-1.46)
[2024-05-03 17:30] LABS: Lab Add On Test DONE
[2024-05-03 17:40] LABS: Glucose 102 mg/dL (74-106)
[2024-05-03 17:48] LABS: Hemoglobin A1C 5.4 % (<5.7)
== END 2024-05-03 02:05 | disposition home or self-care (01) ==
LOC: LBO 02:04
PROVIDERS: Advanced Practice Midwife; Visit Provider Advanced Practice Midwife
DX: E03.9 Hypothyroidism, unspecified (principal); Z34.93 Encounter for supervision of normal pregnancy, unspecified, third trimester; R73.09 Other abnormal glucose
CPT/HCPCS: 36415; 82947; 85027; 83036; 84439; 84443

== ENCOUNTER 2024-05-03 15:11 | Outpatient (REF) | payer OTHER, SELFPAY | END 2024-05-03 15:12 | disposition home or self-care (01) | LOC: LBN 15:11 | PROVIDERS: Visit Provider Obstetrics & Gynecology | DX: Z34.93 Encounter for supervision of normal pregnancy, unspecified, third trimester (principal) | CPT/HCPCS: 87081 ==

== ENCOUNTER 2024-05-29 15:27 | Inpatient (IN) | payer OTHER, SELFPAY ==
[2024-05-29] VITALS (51 sets, daily range): BP systolic 122–140; BP diastolic 68–88; PULSE 0–100; TEMP 36.6
--- NOTE | 2024-05-29 15:31 | W.PM.OBHPL1 ---
Date of service: 05/29/24 Time of Service: 15:31 Assessment and Plan Assessment and plan (1) Normal labor: Status: Acute Assessment and plan: A: 28 yo @ 39+4 wks, spontaneous onset of labor GBS neg, category 1 tracing, Hx hypothyroidism & gential HSV, taking levothyroxine & acyclovir prophylaxis Home glucose monitoring instead of 3 hr GTT (nml levels) Low risk for SD or PPH; Rh neg, FOB also Rh neg P: Admit to BC, T&S, CBC, TSH, random glucose, UDS for 5-P screen+ Inspection of vulva, buttocks and vagina is negative for HSV lesions Expectant management, fleets enema if pt desires Comfort measure as pt requests, anticipate (2) Hypothyroid: Status: Chronic Assessment and plan: Pt has had difficulty taking her prescribed levothyroxine dose regularly TSH levels have varied depending on pt's level of compliance Qualifiers: Hypothyroidism type: acquired Qualified Code(s): E03.9 - Hypothyroidism, unspecified OB-HPI Labor/Delivery History of Present Illness Reason for Visit: NST Chief Complaint: Uterine Contractions (contractins all day since she woke up 0630, recently seemed to be more regular every 5-6 minutes and stronger, saw some bloody mucous earlier today, no ROM, no vomiting). ELISHA Calculator Estimated Delivery Date Method Current WG Current Estimate 06/01/24 LMP (Certain) 39w 4d Other Estimates 05/30/24 Ultrasound #1 39w 6d History of Present Expected Delivery Route/Plan - CNM FOB- Quentin Fam (2nd child together) BB undecided re circ- Ulises prefers to avoid tub, didn't like nitrous Varicella immunity equivocal, offer Vaccine GBS negative Specific Issues/Plan 1. Hypothyroidism since age 18, on levothyroxine 200 mcg qd, initial TSH 13.05, T4 0.96 (nml) 1a. Rx'ed levothyroxine 225 mcg, but has been taking 200 mcg, advised pt to increase to 225, recheck TSH in 4-6 wks 1b. At 18 wks TSH is 5.32, pt to take medication daily as she has not been doing that, recheck in 4-6 wks 1c. At 26 wks TSH 4.32, FT4- 1.23, advise pt to take dose every day, repeat in 4-6 weeks- 0.40 1d. Recheck TSH at 36 wks=8.76, pt confirms she missed a few doses. Advised to be sure to take daily. - test in labor____ 2. Growth scans @ 26 wks=80%, SINDY 15, 30 wks=55th percentile, SINDY 16 2a. @ 34 wks, 63rd percentile and SINDY 18, cephalic 3. History of genital HSV - prophylaxis at 36 weeks, rare outbreaks; Advised start taking 500 mg PO BID @ 37 wks. 3a. Not taking because pills are too large- acyclovir 400 mg escribed BID 4. Rh neg; will ask partner to check his blood type. -Partner is Rh neg confirmed by [place]. 5. History of Vitiligo 6. Difficulty swallowing pills, will try gummy PNV with Floradix 7. 5 P's + prior and partner's use marijuana, initial UDS=negative, 28 wk UDS=negative 8. Glucola at 26 pfk=914, 3 hr GTT -fasting 93 and vomited after glucose. Will start testing QID. 8a. QID sugars tend to be nml if pt takes thyroid Rx and avoid sugary drinks and juice 8b. At 30 wks QID testing is stable, will decrease to 2-3 days/wk for testing if stability is maintained 8c. 05/24- testing 2 x per week QID, All blood sugars WNL. Assessment: History Reviewed & Current Review of Systems Narrative: ROS completed and found to be noncontributory PFSH All Active Problems (Updated 05/29/24 @ 15:39 by Amy Dobbs) Normal labor (Acute) Elevated glucose level (Acute) Rh negative status during (Acute) (Acute) Vitiligo (Acute) Maternal varicella, non-immune (Acute) Hypothyroid (Chronic) Depression (Chronic) zoloft in the past Genital herpes (Acute) Family History Mother Hypertension Hyperlipidemia Diabetes Gestational diabetes Maternal Grandmother Hyperlipidemia Paternal Grandmother Diabetes Other Heart disease Social History (Updated 11/14/23 @ 14:08 by Bre Roland CNM) Smoking/Tobacco Use Status: Never Smoking risk assessment performed?: Yes Alcohol Intake: former Year quit: 2020 Details: Stop with positive test Details: Stop with positive test Household members: significant other and other Details: Kaegan. Gutierrez?. Met in college in [place]. 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 Masters in public policy [employer] History History 2 Para 1 Hx # Term Pregnancies 1 Multiple births 0 Hx # Pregnancies 0 Ectopic pregnancies 0 AB induced 0 Hx Number of Living Children 1 AB spontaneous 0 Past Pregnancies Del. Date GA/Weeks # Preg Succ Route Wgt Sex Labor Lgth Anesthesia Location Prov Complic 03/21/22 40 No Yes vaginal 6 lb 5.2 oz Female 14hr 16min [place] Delivery Date: 03/21/22 Last Updated by: GEM Fields; second degree vaginal laceration Meds Allergies and Home Medications Allergies Allergy/AdvReac Type Severity Reaction Status Date / Time bacitracin (From Polysporin) Allergy Skin Rash Verified 05/24/24 14:30 neomycin (From Neosporin Allergy Skin Rash Verified 05/24/24 14:30 ([id number])) polymyxin B (From Polysporin) Allergy Skin Rash Verified 05/24/24 14:30 ferrous sulfate AdvReac Intermediate Dizziness/L Verified 05/24/24 14:30 ighthead Home Medications ?Medication ?Instructions ?Recorded ?Confirmed ?Type levothyroxine 200 mcg tablet 225 mcg (1.125 x 200 mcg) PO DAILY 09/27/23 05/24/24 Rx #90 tabs PNV 178-FA 180 mcg-om3 35 mg-dha tab PO 11/14/23 05/24/24 History 25 mg-epa 5 mg-fish oil chew tablet ( Gummies (zinc chelate)) ondansetron 4 mg disintegrating 4 mg PO Q6H PRN nausea and 02/13/24 05/24/24 Rx tablet vomiting #10 tabs blood-glucose meter (FreeStyle #1 kit 04/01/24 05/24/24 Rx Lite Meter kit) blood sugar diagnostic (FreeStyle #100 strips 05/01/24 05/24/24 Rx Lite Strips) valacyclovir 500 mg tablet See Rx Instructions .Route 05/10/24 05/24/24 Rx .COMPLEX #60 tabs lancets 28 gauge (FreeStyle #100 ea 05/14/24 05/24/24 Rx Lancets) acyclovir 400 mg tablet 400 mg PO BID #60 tabs 05/24/24 05/24/24 Rx Exam Physical Exam Vital signs: Pulse BP 80 132/84 05/29/24 15:30 05/29/24 15:17 Vital Signs Reviewed: Yes Constitutional Constitutional: mild distress, thin and cooperative Detailed Labor and Delivery Exam Dilation: 6 Effacement (%): 100 station: 0 Amniotic Membrane Status: Intact Contraction Frequency(min): q5-6 Contraction Intensity: Moderate Fetus A Heart Rate Baseline: 125 Monitor Accelerations: 15 X 15 Monitor Decelerations: None Variability: Moderate (6-25 BPM) Categories: Category I Est. Weight: 7 lb 0.877 oz Est. Weight: 3200 gms HEENT Exam HEENT Exam: Normal Neck Exam Neck Exam: Normal Chest/Brest/Axilla Exam Chest Exam: Normal Breast Exam Breast Exam: Not Done Respiratory Exam Respiratory Exam: Normal Cardiovascular Exam Cardiovascular Exam: Normal Abdominal Exam Abdominal Exam: Normal (Gravid, nontender) Rectal Exam Rectal Exam: Normal Exam Exam: Normal Extremities Exam Extremities Exam: Normal Back/Spine/Pelvis Exam Back Exam: Normal Pelvis Adequate: Yes (proven to 6'5) Skin Exam Skin Exam: Normal Neurological Exam Neurological Exam: Normal Psychiatric Exam Psychiatric Exam: Normal Results Results Group Beta Strep: Negative Blood Type: O- Rubella Status: Immune Varicella Immunity: Equivocal Risk Assessment Risk for Shoulder Dystocia Historical/Initial OB: NEGATIVE FOR: Pelvic Abnormality, Pre- BMI>30, Previous Shoulder Dystocia or Previous Macrosomia 36 Weeks: NEGATIVE FOR: Current Gestational DM, EFW>4500gms or Maternal Weight Gain>40lbs Increased Risk?: No Date/Initial: 11/14/23 [facility] Delivery Plan @ 36wks: Risk for Pre-Eclampsia Date Initiated/Initials: not indicated Yes, if one or more: NEGATIVE FOR: Hx Pre-E/Gest HTN, Chronic HTN, Multiple Gestation, Pre-gestational DM, Renal Disease, Systemic Lupus or APA Syndrome Yes, if 2 or more: NEGATIVE FOR: Nulliparity, Age>= 35 yrs, >10yr btwn pregnancies, BMI>30, ethinicty, Mother/Sister w/ Pre-E or Previous IUGR Risk for Post- Hemorrhage Initial: NEGATIVE FOR: Multiple Gestation, Previous PPH, Known Clotting Deficiency, Grand Multiparity or Anticoagulation 36 Weeks: NEGATIVE FOR: Anemia, hgb<10, Low platelets(thrombocytopenia), Gestational HTN or Pre-E, Polyhydraminios or EFW>4500gms At Risk?: No Counseled re: Active Management: Yes Risks Reviewed Risks Reviewed Upon Admission: Yes
[2024-05-29 15:58] LABS: HCT 34.9 % (36.0-46.0); HGB 11.6 g/dL (11.2-15.7); MCH 29.3 pg (27.0-33.0); MCHC 33.2 % (32.0-36.0); MCV 88 fL (80-95); MPV 9.9 fL (8.0-11.0); Platelet Count 155 10^3/uL (130-400); RBC 3.96 10^6/uL (3.93-5.22); RDW 13.6 % (11.7-14.6); RDW-SD 43.8 fL; WBC 11.81 10^3/uL (4.4-10.8)
[2024-05-29 16:18] LABS: Glucose 90 mg/dL (74-106)
[2024-05-29 16:32] LABS: TSH (W/Ref FT4) 13.29 uIU/mL (0.36-3.74)
[2024-05-29 16:52] LABS: FREE T4 0.98 ng/dL (0.76-1.46)
[2024-05-29 16:55] LABS: *AMPHETAMINES SCREEN URINE Negative (Negative); *BARBITURATES SCREEN URINE Negative (Negative); *BENZODIAZEPINES SCREEN URINE Negative (Negative); Cannabinoids THC Negative (Negative); Cocaine Screen,Urine Negative (Negative); METHADONE URINE SCREEN Negative (Negative); OPIATES URINE SCREEN Negative (Negative)
[2024-05-29 16:59] LABS: Tricyclic Antidepressants Negative (Negative)
[2024-05-29] MEDS: Oxytocin 10 UNITS/ML VIAL IM (17:25)
[2024-05-29] MEDS: Benzocaine 20% 60 ML CAN (17:26)
--- NOTE | 2024-05-29 18:04 | OBVDS_ITS ---
Date of service: 05/29/24 Time of Service: 18:05 OB Labor/ Delivery Information Baby A Delivery Delivery Method: Spontaneaous Presentation: Cephalic Cephalic Position: Vertex Vertex Position: Right Occipital Anterior Cord Description-Baby A: 3 Vessels and Clamped/Cut Amniotic Fluid: Clear Estimated Blood Loss: 250 Delivery Outcome: Liveborn Infant Transferred: Remains with Mother Note: Labor progressed rapidly after admission, pt requested AROM when she had dilated to 9 cm and her partner had arrived at the bedside, AROM performed for clear fluid, spontaneous urges to push began shortly thereafter, 2nd stage huddle was completed and a few contractions later of a vigorous male over intact perineum was accomplished. Shoulders came easily and infant to mother's arms, pitocin 10 units IM given, cord was clamped and cut by FOB, cord blood collection was attempted but no more than 3 ml was retrieved, [place] placenta delivered with 3 VC and cord partially evulsed during gentle cord traction causing further difficulty with cord blood retrieval. Superficial perineal skin tear was repaired under topical benzocaine aerosol spray using 3.0 vicryl rapide. Strong family bonding observed, fundus firm below umbilicus, minimal lochia noted, apgars 9/9, weight 3480 gms. Providers Nurse Smoke And Flame Specialist: Amy Dobbs Nurse: Nellie Lewis Nurse: Pepe Valdez Labor/Delivery Information Steroids Given: None Reason Steroids Not Administered: N/A Group Beta Strep: Negative Antibiotics Administered: No Rubella Status: Immune Blood Type: O- Varicella Immunity: Equivocal Shoulder Dystocia: No Stages of Labor Onset of Labor Date: 05/29/24 Onset of Labor Time: 06:30 Complete Dilatation Date: 05/29/24 Complete Dilatation Time: 17:13 Labor - Stage 1 Duration: 10 hours and 43 minutes ROM Baby A: 05/29/24 ROM Baby A: 17:07 ROM Total Time- Baby A: [email or web address] Delivery Date-Baby A: 05/29/24 Infant Delivery Time-Baby A: 17:23 Labor Stage 2 Duration: 10 minutes Placenta Delivery Date-Baby A: 05/29/24 Placenta Delivery Time-Baby A: 17:30 Labor-Stage 3 Duration: 7 minutes Total Length of Labor-Baby A: 10 hours and 53 minutes Placenta Status: Delivered Baby A Infant Gender: Male Gestational Status: Term (39-41.6 wks) Gestational Age in Weeks/Days: 39 Weeks and 4 Days weight: 7 lb 10.753 oz Weight Comment: 3480 gms Length-Baby A: 19.29 in Score-1 Minute Interval(Baby A) Heart Rate-1 minute: 100 BPM or Greater Respiratory Effort- 1 minute: Spontaneous/Strong Cry Muscle Tone-1 minute: Active Movement Reflex Response-1 minute: Prompt Response Color-1 minute: Bluish Hands or Feet Total Score-1 minute: 9 Score-5 Minute Interval(Baby A) Heart Rate- 5 minute: 100 BPM or Greater Respiratory Effort-5 minute: Spontaneous/Strong Cry Muscle Tone-5 minute: Active Movement Reflex Response-5 minute: Prompt Response Color-5 minute: Bluish Hands or Feet Total Score- 5 minute: 9
[2024-05-29] MEDS: Hamamelis Leaf/Glycerin 100 EACH BOX PR (19:08)
[2024-05-29] MEDS: Dibucaine 1% 28 GM TUBE TP (19:09)
[2024-05-30 00:51] VITALS: BP 138/86; PULSE 77; RESP 18; TEMP 37.1
[2024-05-30 03:43] VITALS: BP 140/91; PULSE 97; RESP 18
[2024-05-30 08:20] VITALS: BP 122/91; PULSE 83; RESP 16; TEMP 36.5; O2SAT 98
[2024-05-30] MEDS: Levothyroxine 75 MCG TAB 225 MCG PO (10:25)
[2024-05-30 12:30] VITALS: BP 125/84; PULSE 82; RESP 18; TEMP 36.7; O2SAT 100
--- NOTE | 2024-05-30 17:15 | DSE_ITS ---
Date of service: 05/30/24 Time of Service: 17:15 DS: Diagnosis Discharge Diagnosis (1) Depression: Status: Chronic Asessment and Plan: Discussed resuming medication for depression and sertraline 25 mg escribed with instructions (2) Term of male : Status: Acute Asessment and Plan: Caring for baby independently. Pain is managed well with oral analgesics. Voiding without difficulty. well. Circumcision today. A - stable mother and baby , Post day 1 P - Discharge to home this evening . Routine post instructions. [facility] Discharge Plan Disposition Patient Disposition: Home Condition: Good Discharge Details Reason For Visit: NST Admit Date/Time: 05/29/24 15:27 Admit Provider: Amy Dobbs Attending Provider: Amy Dobbs Primary Care Provider: Unknown,Unknown Home Meds and New Rx's Prescriptions: New sertraline 25 mg tablet 25 mg PO DAILY Qty: 30 7RF No Action Gummies(zinc chelate) 180 mcg-35 mg- 25 mg-5 mg tablet,chewable PO levothyroxine 200 mcg tablet 225 mcg PO DAILY Qty: 90 0RF Discharge Instructions Stand Alone Forms: BC Instructions, BC Post Vaginal De liver Activity:: Activity as Tolerated Equipment/Supplies:: No Equipment Needed Diet:: As Tolerated Discharge Orders Discharge Orders: Discharge Order (Routine); Ordered 05/30/24 Ordered By: Bre Catherine OB:DS Summary Summary Vaginal Delivery Method: Spontaneaous Episiotomy Description: None Laceration Description: Perineal Laceration Extension: First Degree Contraception Discussed Contraception Discussed: Yes Contraceptive Plan: Undecided (reviewed all options), [place] Infant Gender-Baby A: Male weight: 7 lb 10.753 oz Status at Discharge Functional status at discharge: independent ambulation Overall status at discharge: patient is back to baseline Mental Status: mental status grossly normal Speech and Movement: speech and movement normal Mood: congruent mood Affect: normal affect Quality:SDOH Health Related Social Needs: No Data to Display Exam Physical Exam Vital signs: Temp Pulse Resp BP 98.7 F 97 H 18 140/91 H 05/30/24 00:51 05/30/24 03:43 05/30/24 03:43 05/30/24 03:43 Constitutional Constitutional: no acute distress HEENT Exam HEENT Exam: Normal Respiratory Exam Respiratory Exam: Normal Cardiovascular Exam Cardiovascular Exam: Normal Fundal Exam Fundus: Below Umbilicus and Firm Extremities Exam Extremity Exam: Normal Skin Exam Skin Exam: Normal Psychiatric Exam Psychiatric Exam: Normal PFSH All Active Problems (Updated 05/30/24 @ 17:16 by Bre Catherine CNM) Term of male (Acute) Elevated glucose level (Acute) Rh negative status during (Acute) (Acute) Vitiligo (Acute) Maternal varicella, non-immune (Acute) Hypothyroid (Chronic) Depression (Chronic) zoloft in the past Genital herpes (Acute) Family History Mother Hypertension Hyperlipidemia Diabetes Gestational diabetes Maternal Grandmother Hyperlipidemia Paternal Grandmother Diabetes Other Heart disease Social History (Updated 11/14/23 @ 14:08 by Bre Roland CNM) Smoking/Tobacco Use Status: Never Smoking risk assessment performed?: Yes Alcohol Intake: former Year quit: 2020 Details: Stop with positive test Details: Stop with positive test Household members: significant other and other Details: Kaegan. Gutierrez?. Met in college in [place]. 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 Masters in public policy [employer] History History 2 Para 1 Hx # Term Pregnancies 1 Multiple births 0 Hx # Pregnancies 0 Ectopic pregnancies 0 AB induced 0 Hx Number of Living Children 1 AB spontaneous 0 Past Pregnancies Del. Date GA/Weeks # Preg Succ Route Wgt Sex Labor Lgth Anesth esia Location Prov [facility] 03/21/22 40 No Yes vaginal 6 lb 5.2 oz Female 14hr 16min [place] Delivery Date: 03/21/22 Last Updated by: GEM Fields; second degree vaginal laceration DS: Data Vitals/I&O Vitals and I&O: Vital Signs Temperature 98.7 F 05/30/24 00:51 Temperature 97.9 F 05/29/24 15:05 Temperature Source Oral 05/30/24 00:51 Pulse 97 H 05/30/24 03:43 Pulse 70 05/29/24 15:05 Pulse Rhythm Regular 05/30/24 00:52 Respiratory Rate 18 05/30/24 03:43 Blood Pressure 140/91 H 05/30/24 03:43 Blood Pressure 132/84 05/29/24 15:05 Blood Pressure Mean 107 05/30/24 03:43 Oxygen Delivery Method Room Air 05/29/24 15:29 Oxygen Flow Rate 0 05/29/24 15:29 Intake & Output 05/29/24 05/30/24 05/30/24 23:59 11:59 23:59 Output Total 400 / 400 1500 / 1500 Balance -400 / -400 -1500 / -1500 Weight 135 lb Output: Urine 400 / 400 1500 / 1500 Other: Urine Color Pale
[2024-05-30 19:30] VITALS: BP 121/91; PULSE 78; RESP 16; TEMP 37; O2SAT 99
[2024-05-30 20:30] VITALS: BP 124/88
[2024-05-31] MEDS: Levothyroxine 75 MCG TAB 225 MCG PO (05:56)
[2024-05-31 07:30] VITALS: BP 116/81; PULSE 78; RESP 16; TEMP 36.5; O2SAT 98
--- NOTE | 2024-05-31 07:42 | DSE_ITS ---
Date of service: 05/31/24 Time of Service: 07:42 DS: Diagnosis Discharge Diagnosis (1) Depression: Status: Chronic Asessment and Plan: sertraline escribed with instructions (2) Term of male : Status: Acute Asessment and Plan: Alesia decided last evening not to go home and wishes discharge today. Caring for baby independently. Pain is managed well with oral analgesics. Voiding without difficulty. well. A - stable mother and baby , Post day 2 P - Discharge to home today. Routine post instructions. [facility] Discharge Plan Disposition Patient Disposition: Home Condition: Good Discharge Details Reason For Visit: NST Admit Date/Time: 05/29/24 15:27 Admit Provider: Amy Dobbs Attending Provider: Amy Dobbs Primary Care Provider: Unknown,Unknown Home Meds and New Rx's Prescriptions: New sertraline 25 mg tablet 25 mg PO DAILY Qty: 30 7RF No Action Gummies(zinc chelate) 180 mcg-35 mg- 25 mg-5 mg tablet,chewable 1 tab PO QDAY levothyroxine 200 mcg tablet 225 mcg PO DAILY Qty: 90 0RF Discharge Instructions Stand Alone Forms: BC Instructions, BC Post Vaginal Deli jefferson Activity:: Activity as Tolerated Equipment/Supplies:: No Equipment Needed Diet:: As Tolerated Discharge Orders Discharge Orders: Discharge Order (Routine); Ordered 05/31/24 Ordered By: Bre Catherine OB:DS Summary Summary Vaginal Delivery Method: Spontaneaous Episiotomy Description: None Laceration Description: Perineal Laceration Extension: First Degree Contraception Discussed Contraception Discussed: Yes, Infant Gender-Baby A: Male weight: 7 lb 10.753 oz Status at Discharge Functional status at discharge: independent ambulation Overall status at discharge: patient is back to baseline Mental Status: mental status grossly normal Speech and Movement: speech and movement normal Mood: congruent mood Affect: normal affect Quality:SDOH Health Related Social Needs: No Data to Display Exam Physical Exam Vital signs: Temp Pulse Resp BP Pulse Ox 98.6 F 78 16 124/88 99 05/30/24 19:30 05/30/24 19:30 05/30/24 19:30 05/30/24 20:30 05/30/24 19:30 Vital Signs Reviewed: Yes Constitutional Constitutional: no acute distress Respiratory Exam Respiratory Exam: Normal Cardiovascular Exam Cardiovascular Exam: Normal Fundal Exam Fundus: Below Umbilicus and Firm Extremities Exam Extremity Exam: Normal Skin Exam Skin Exam: Normal Psychiatric Exam Psychiatric Exam: Normal PFSH All Active Problems (Updated 05/30/24 @ 17:16 by Bre Catherine CNM) Term of male (Acute) Elevated glucose level (Acute) Rh negative status during (Acute) (Acute) Vitiligo (Acute) Maternal varicella, non-immune (Acute) Hypothyroid (Chronic) Depression (Chronic) zoloft in the past Genital herpes (Acute) Family History Mother Hypertension Hyperlipidemia Diabetes Gestational diabetes Maternal Grandmother Hyperlipidemia Paternal Grandmother Diabetes Other Heart disease Social History (Updated 11/14/23 @ 14:08 by Bre Roland CNM) Smoking/Tobacco Use Status: Never Smoking risk assessment performed?: Yes Alcohol Intake: former Year quit: 2020 Details: Stop with positive test Details: Stop with positive test Household members: significant other and other Details: Kaegan. Gutierrez?. Met in college in [place]. 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 Masters in public policy [employer] History History 2 Para 1 Hx # Term Pregnancies 1 Multiple births 0 Hx # Pregnancies 0 Ectopic pregnancies 0 AB induced 0 Hx Number of Living Children 1 AB spontaneous 0 Past Pregnancies Del. Date GA/Weeks # Preg Succ Route Wgt Sex Labor Lgth Anesth esia Location [facility] 03/21/22 40 No Yes vaginal 6 lb 5.2 oz Female 14hr 16min [place] Delivery Date: 03/21/22 Last Updated by: GEM Fields; second degree vaginal laceration DS: Data Vitals/I&O Vitals and I&O: Vital Signs Temperature 98.6 F 05/30/24 19:30 Temperature 97.9 F 05/29/24 15:05 Temperature Source Oral 05/30/24 19:30 Pulse 78 05/30/24 19:30 Pulse 70 05/29/24 15:05 Pulse Rhythm Regular 05/30/24 19:30 Respiratory Rate 16 05/30/24 19:30 Blood Pressure 124/88 05/30/24 20:30 Blood Pressure 132/84 05/29/24 15:05 Blood Pressure Mean 100 05/30/24 20:30 Pulse Oximetry 99 05/30/24 19:30 Oxygen Delivery Method Room Air 05/29/24 15:29 Oxygen Flow Rate 0 05/29/24 15:29 Pain Level 2 05/30/24 12:30 Comment Patient vital signs taken after ambulating. BP to be repeated. 05/30/24 19:30 Intake & Output 05/30/24 05/30/24 05/31/24 11:59 23:59 11:59 Output Total 1500 / 1500 Balance -1500 / -1500 Output: Urine 1500 / 1500 Other: Urine Color Pale Yellow Yellow Urine Appearance Cloudy Urine Odor Normal
[2024-05-31 12:15] LABS: Fentanyl Scr w/Rfx Confirm Negative ng/mL (<1)
[2024-06-06 14:24] LABS: Buprenorphine Negative ng/mL (Cutoff: 5.0)
== END 2024-05-31 11:20 | disposition home or self-care (01) | DRG 806 ==
LOC: BCD 15:37 → OBS 15:37
PROVIDERS: Admitting Provider Advanced Practice Midwife; Visit Provider Advanced Practice Midwife
DX: O99.284 Endocrine, nutritional and metabolic diseases complicating childbirth (principal); O98.52 Other viral diseases complicating childbirth; Z37.0 Single live birth; Z3A.39 39 weeks gestation of pregnancy; E03.9 Hypothyroidism, unspecified; B00.9 Herpesviral infection, unspecified; O26.893 Other specified pregnancy related conditions, third trimester; O99.344 Other mental disorders complicating childbirth; F32.A Depression, unspecified; O70.0 First degree perineal laceration during delivery; Z67.91 Unspecified blood type, Rh negative; L80 Vitiligo; O99.72 Diseases of the skin and subcutaneous tissue complicating childbirth
CPT/HCPCS: 80307; 80348; 82947; 85027; 86850; 86900; 86901; 59025; 84439; 84443; J2590

== ENCOUNTER 2025-01-16 14:06 | Outpatient (REF) | payer OTHER, SELFPAY ==
[2025-01-16 15:25] LABS: TSH (W/Ref FT4) 54.78 uIU/mL (0.36-3.74)
== END 2025-01-16 14:07 | disposition home or self-care (01) ==
LOC: NCHCN 14:06
PROVIDERS: Visit Provider Nurse Practitioner Family
DX: E03.9 Hypothyroidism, unspecified (principal)
CPT/HCPCS: 84439; 84443

== ENCOUNTER 2025-03-18 16:01 | Outpatient (REF) | payer OTHER, SELFPAY ==
[2025-03-18 16:16] LABS: TSH (W/Ref FT4) 7.49 uIU/mL (0.36-3.74)
== END 2025-03-18 16:02 | disposition home or self-care (01) ==
LOC: NCHCN 16:01
PROVIDERS: Visit Provider Nurse Practitioner Family
DX: E03.9 Hypothyroidism, unspecified (principal)
CPT/HCPCS: 84439; 84443